=== PATIENT | male | born 1945 | race Caucasian/White ===

== ENCOUNTER 2021-11-11 11:35 | Emergency (ER) | payer SELFPAY ==
[~2021-11-11] VITALS: Ht 177.8 cm; Wt 72.6 kg
--- NOTE | 2021-11-11 11:40 | NUR ---
KASSY [id number] From Home "Blood in Urine x2d. NOT peeing much". PLACED ON BED, AAOX4, BREATHING EVEN AND UNLABORED.
--- NOTE | 2021-11-11 11:50 | NUR ---
URINE SAMPLE SENT TO LAB
--- NOTE | 2021-11-11 12:00 | NUR ---
COAT JOINER AT BED SIDE
[2021-11-11 12:06] LABS: BASOPHILS # (AUTO) 0.1 K/uL (0.0-0.2); BASOPHILS % (AUTO) 0.6 % (0.0-2.0); EOSINOPHILS % (AUTO) 0.1 % (0.0-6.0); HEMATOCRIT 47 % (39-51); HEMOGLOBIN 15.5 g/dL (13.5-17.5); LYMPHOCYTES # (AUTO) 0.8 K/uL (0.8-4.8); LYMPHOCYTES % (AUTO) 7.2 % (20.0-44.0); MEAN CORPUSCULAR HGB CONC 33 g/dl (31.0-36.0); MEAN CORPUSCULAR VOLUME 87 fL (80-96); MONOCYTES # (AUTO) 0.9 K/uL (0.1-1.30); MONOCYTES % (AUTO) 8.6 % (2.0-12.0); NEUTROPHILS # (AUTO) 9.1 K/uL (1.8-8.9); NEUTROPHILS % (AUTO) 83.5 % (43.0-81.0); PLATELET COUNT (AUTO) 309 K/uL (150-450); RED BLOOD CELL COUNT(AUTO) 5.42 MIL/uL (4.5-6.0); WHITE BLOOD COUNT (AUTO) 10.9 K/uL (4.3-11.0)
[2021-11-11 12:07] LABS: BILIRUBIN,URINE SMALL (NEGATIVE); COLOR,URINE RED (YELLOW); LEUKOCYTE ESTERASE ,URINE NEGATIVE (NEGATIVE); NITRITE, URINE NEGATIVE (NEGATIVE); PH,URINE 7.5 (5.0-8.0); PROTEIN,URINE 100 mg/dl (NEGATIVE); UGLUCOSE NEGATIVE (NEGATIVE); UROBILINOGEN,URINE 0.2 EU/dL (0.2)
[2021-11-11 12:23] LABS: RBC,URINE TOO NUMEROUS TO COUN /HPF (0-2); WBC,URINE 0-2 /HPF (0-3)
[2021-11-11 12:24] LABS: BACTERIA,URINE None seen /HPF (None Seen); SQUAMOUS EPITHELIAL CELL,UR None Seen /HPF (None Seen)
[2021-11-11 12:25] LABS: ALBUMIN 3.9 g/dL (3.4-5.0); BILIRUBIN,TOTAL 1.4 mg/dL (0.2-1.0); CALCIUM, SERUM 8.7 mg/dL (8.5-10.1); CREATININE 0.8 mg/dL (0.6-1.3); POTASSIUM 3.8 mmol/L (3.5-5.1); TOTAL PROTEIN, SERUM 7.4 g/dL (6.4-8.2)
--- NOTE | 2021-11-11 14:00 | NUR ---
IV removed. Catheter intact and site benign. Pressure and 4x4 applied to site. No bleeding noted.Patient discharged to home in stable condition. Written and verbal after care instructions given. Patient verbalizes understanding of instruction.
[2021-11-11 14:26] VITALS: BP 135/95
== END 2021-11-11 14:00 | disposition home or self-care (01) ==
LOC: EDBD → ER 11:38
DX: R33.9 Retention of urine, unspecified (principal); R31.9 Hematuria, unspecified; I10 Essential (primary) hypertension
CPT/HCPCS: 36415; 80053-TC; 81001; 85025-TC; 85730-TC

== ENCOUNTER 2021-11-15 09:26 | Emergency (ER) | payer OTHER ==
[~2021-11-15] VITALS: Ht 177.8 cm; Wt 73.5 kg
--- NOTE | 2021-11-15 09:33 | NUR ---
TO ER BED 1 AWAITING MD SEBASTIAN
--- NOTE | 2021-11-15 09:39 | NUR ---
RECIEVED PT 76 YRS MALE CAME FROM HOME WITH F/C WITH LEG BAG DRANING AND PATENT WILL BY C/O TO BE REMOVED PLACED ON 11/11/21 FOR URINE RETNTION
--- NOTE | 2021-11-15 09:55 | NUR ---
SEEN BY DR. LUNA
--- NOTE | 2021-11-15 10:00 | NUR ---
UA SENT TO LAB FROM F/C AND D/C F/C DONE and hai diflated and intact
[2021-11-15 11:02] LABS: BILIRUBIN,URINE NEGATIVE (NEGATIVE); COLOR,URINE YELLOW (YELLOW); LEUKOCYTE ESTERASE ,URINE SMALL (NEGATIVE); NITRITE, URINE NEGATIVE (NEGATIVE); PROTEIN,URINE 100 mg/dl (NEGATIVE); UGLUCOSE NEGATIVE (NEGATIVE)
--- NOTE | 2021-11-15 11:10 | NUR ---
PT VOIDING 50 ML BLOODY COLOR NO BLADDER DISTENTION
[2021-11-15 11:23] LABS: BACTERIA,URINE 2+ /HPF (None Seen); RBC,URINE TOO NUMEROUS TO COUN /HPF (0-2); WBC,URINE 21-50 /HPF (0-3)
[2021-11-15] MEDS ORDERED: SULF1TAB48 PO (12:16)
--- NOTE | 2021-11-15 12:45 | NUR ---
Patient discharged to home in stable condition. Written and verbal after care instructions given. Patient verbalizes understanding of instruction.
[2021-11-15 12:55] VITALS: BP 138/80
== END 2021-11-15 12:56 | disposition home or self-care (01) ==
LOC: EDBD → ER 09:31
DX: N30.90 Cystitis, unspecified without hematuria (principal); Z46.6 Encounter for fitting and adjustment of urinary device; I10 Essential (primary) hypertension; I48.91 Unspecified atrial fibrillation
CPT/HCPCS: 81001; 87086-TC

== ENCOUNTER 2021-11-16 02:26 | Emergency (ER) | payer OTHER ==
[~2021-11-16] VITALS: Ht 167.6 cm; Wt 72.6 kg
[~2021-11-16 02:26] MED LIST: SULF1TAB48 PO
--- NOTE | 2021-11-16 02:30 | NUR ---
[id number] C/O URINARY RENTENTION FOR FEW DAYS. PT A/OX4. TOLERATING R/A WELL WITH NO SOB. SAFETY MEASURES IN PLACE.
[2021-11-16] MEDS ORDERED: LIDOCAINE 2% JEL UROJET 10 ML MM ONE (02:41)
--- NOTE | 2021-11-16 02:53 | NUR ---
FC 14FR INSERTED
[2021-11-16 03:15] LABS: BILIRUBIN,URINE SMALL (NEGATIVE); COLOR,URINE RED (YELLOW); LEUKOCYTE ESTERASE ,URINE MODERATE (NEGATIVE); NITRITE, URINE POSITIVE (NEGATIVE); PH,URINE 6.5 (5.0-8.0); PROTEIN,URINE >=300 mg/dl (NEGATIVE); UGLUCOSE NEGATIVE (NEGATIVE)
--- NOTE | 2021-11-16 03:17 | NUR ---
AARON BAG CONVERTED TO LEG BAG. TEACHING PROVIDED TO PATIENT ON AFTERCARE OF AARON.
--- NOTE | 2021-11-16 03:23 | NUR ---
Patient discharged to home in stable condition. Written and verbal after care instructions given. Patient verbalizes understanding of instruction.
[2021-11-16 03:31] VITALS: BP 151/87
[2021-11-16 07:44] LABS: BACTERIA,URINE Rare /HPF (None Seen); RBC,URINE TOO NUMEROUS TO COUN /HPF (0-2); SQUAMOUS EPITHELIAL CELL,UR Few /HPF (None Seen); WBC,URINE 0-2 /HPF (0-3)
== END 2021-11-16 03:25 | disposition home or self-care (01) ==
LOC: EDBD 02:31 → ER 02:31
DX: R33.9 Retention of urine, unspecified (principal); I10 Essential (primary) hypertension
CPT/HCPCS: 99284; 51702; 87086; 81001; J3490; A4217

== ENCOUNTER 2021-11-19 14:40 | Emergency (ER) | payer OTHER ==
[~2021-11-19] VITALS: Ht 180.3 cm; Wt 83.9 kg
[2021-11-19] MEDS ORDERED: LIDOCAINE 2% JEL UROJET 10 ML MM ONE (15:10)
--- NOTE | 2021-11-19 15:15 | NUR ---
PT IS REFUSING TO HAVE F/C CHANGE AND JUST REQUESTING A NEW F/C BAG.
--- NOTE | 2021-11-19 15:20 | NUR ---
RECIVED PT FROM HOME WITH F/C AND LEG BAG C/O LEAKING IN COLLECTION BAG DINNALE ANY PROBLEM WITH F/C
--- NOTE | 2021-11-19 15:30 | NUR ---
EXAMINE BY DR. BLACK
--- NOTE | 2021-11-19 15:35 | NUR ---
IRREGATED F/C WITH 30 ML NS AND ASPIRTED BACK CLEARE YELLOW COLOR URINE OUT NO BLADER DISTENT PATENT WILL AND DRANING WILL
--- NOTE | 2021-11-19 16:07 | NUR ---
CHANGE LEG BAG AND STOP STCK CLEAN SITE
--- NOTE | 2021-11-19 16:54 | NUR ---
UA SENT TO LAB FROM F/C
[2021-11-19 17:30] LABS: BILIRUBIN,URINE SMALL (NEGATIVE); COLOR,URINE AMBER (YELLOW); LEUKOCYTE ESTERASE ,URINE TRACE (NEGATIVE); NITRITE, URINE NEGATIVE (NEGATIVE); PROTEIN,URINE 100 mg/dl (NEGATIVE); UGLUCOSE NEGATIVE (NEGATIVE)
[2021-11-19 17:42] LABS: BACTERIA,URINE 2+ /HPF (None Seen); RBC,URINE TOO NUMEROUS TO COUN /HPF (0-2); SQUAMOUS EPITHELIAL CELL,UR Few /HPF (None Seen)
--- NOTE | 2021-11-19 18:01 | NUR ---
Patient discharged to home in stable condition. Written and verbal after care instructions given. Patient verbalizes understanding of instruction.with fallow up care
[2021-11-19 18:09] VITALS: BP 137/76
== END 2021-11-19 18:11 | disposition home or self-care (01) ==
LOC: ER 14:43
DX: Z46.6 Encounter for fitting and adjustment of urinary device (principal); I10 Essential (primary) hypertension; I48.91 Unspecified atrial fibrillation; Z79.899 Other long term (current) drug therapy
CPT/HCPCS: 81001; 87086-TC; J3490

== ENCOUNTER 2021-11-22 09:56 | Emergency (ER) | payer OTHER ==
[~2021-11-22] VITALS: Ht 177.8 cm; Wt 83.9 kg
[2021-11-22 10:10] VITALS: BP 145/84
== END 2021-11-22 10:33 | disposition home or self-care (01) ==
LOC: ER 09:59
DX: Z46.6 Encounter for fitting and adjustment of urinary device (principal); I10 Essential (primary) hypertension; I48.91 Unspecified atrial fibrillation; Z79.899 Other long term (current) drug therapy

== ENCOUNTER 2021-12-26 08:19 | Emergency (ER) | payer OTHER ==
[~2021-12-26] VITALS: Ht 180.3 cm; Wt 81.2 kg
[2021-12-26 08:37] VITALS: BP 154/99
--- NOTE | 2021-12-26 08:39 | NUR ---
to er bed 11 awaiting md blankenship for leaking mares catheter
--- NOTE | 2021-12-26 09:14 | NUR ---
Patient discharged to home in stable condition. Written and verbal after care instructions given. Patient verbalizes understanding of instruction.
--- NOTE | 2021-12-26 09:14 | NUR ---
LEG BAG CHANGED; PT STATES INDWELLING CATH IS STILL OK, JUST NEEDS LEG BAG TO BE CHANGED.
== END 2021-12-26 09:15 | disposition home or self-care (01) ==
LOC: ER 08:27
DX: T83.031A Leakage of indwelling urethral catheter, initial encounter (principal); I10 Essential (primary) hypertension; I48.91 Unspecified atrial fibrillation; Z79.899 Other long term (current) drug therapy; Y82.8 Other medical devices associated with adverse incidents
CPT/HCPCS: 99282; J7040